=== PATIENT | male | born 1965 | race Caucasian/White ===

== ENCOUNTER 2019-01-08 09:05 | Outpatient (CLI) | payer OTHER ==
[2019-01-08 10:46] LABS: CREATININE 1.12 mg/dL (0.7-1.3)
[2019-01-08] MEDS ORDERED: OMNIPAQUE 350 MG/ML, 100ML BOTTLE ONE (15:00)
== END 2019-01-08 23:59 | disposition home or self-care (01) ==
LOC: RAD 09:05
PROVIDERS: ATTEND Internal Medicine
DX: R91.8 Other nonspecific abnormal finding of lung field (principal); D83.1 Common variable immunodeficiency with predominant immunoregulatory T-cell disorders; R16.1 Splenomegaly, not elsewhere classified
CPT/HCPCS: 36415; 74177; 82565; Q9967

== ENCOUNTER 2019-10-20 13:10 | Emergency (ER) | payer OTHER ==
[~2019-10-20] VITALS: Ht 175.3 cm; Wt 106.3 kg
[2019-10-20] MEDS ORDERED: SODIUM CHLORIDE FLUSH 10ML SYR IVF ONE (14:00)
[2019-10-20 14:21] LABS: INTERNATIONAL NORMALIZED RATIO 0.96 (0.93-1.1); PROTHROMBIN TIME 10.2 Seconds (9.6-11.5)
[2019-10-20 14:22] LABS: ALBUMIN 3.7 g/dL (3.4-5.0); ANION GAP 4 mmol/L (5-15); CALCIUM 9.1 mg/dL (8.5-10.1); CHLORIDE 106 mmol/L (98-107)
[2019-10-20 14:26] LABS: ALANINE AMINOTRANSFERASE 72 U/L (12-78); ALKALINE PHOSPHATASE 143 U/L (45-117); BILIRUBIN,TOTAL 0.4 mg/dL (0.2-1.0); CREATININE 0.97 mg/dL (0.7-1.3); TOTAL PROTEIN 7.1 g/dL (6.4-8.2)
[2019-10-20 14:57] LABS: MD YES; MEAN CORPUSCULAR HEMOGLOBIN 27.3 pg (27.5-34.5); MEAN CORPUSCULAR HGB CONC 33.4 g/dL (33.2-36.2); MEAN CORPUSCULAR VOLUME 81.6 fL (81-97); MEAN PLATELET VOLUME 10.2 fL (7.4-10.4); PLATELET COUNT 51 x10^3/uL (130-400); RED CELL DISTRIBUTION WIDTH 17.1 % (9.4-14.8)
[2019-10-20 15:06] LABS: EOS#(MANUAL) 0.02 x10^3/uL (0.0-0.4); EOS% (MANUAL) 1 % (1-7); LYMPH#(MANUAL) 0.48 x10^3/uL (1-3.4); LYMPHS% (MANUAL) 25 % (22-44); MONOS#(MANUAL) 0.36 x10^3/uL (0.3-2.7); MONOS% (MANUAL) 19 % (2-9); SEG#(MANUAL) 1.05 x10^3/uL (1.8-6.8); SEGS% (MANUAL) 55 % (42-75)
[2019-10-20 15:07] LABS: <PLATELET ESTIMATE> DECREASED; ANISOCYTOSIS 1+; POLYCHROMASIA 1+
[2019-10-20 15:08] LABS: LARGE PLATELETS 1+
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
[2019-10-20] MEDS ORDERED: MONT10TA11 PO (15:56)
[2019-10-20] MEDS ORDERED: ENAL20TA PO (15:56)
[2019-10-20] MEDS ORDERED: MESA800T2 PO ×2 (15:56)
[2019-10-20] MEDS ORDERED: IGG (15:56)
[2019-10-20] MEDS ORDERED: ATOR40TA78 PO (15:56)
[2019-10-20] MEDS ORDERED: CETI10TA26 PO (15:56)
[2019-10-20] MEDS ORDERED: LORA10TA75 PO (15:56)
[2019-10-20] MEDS ORDERED: CIME200T6 PO (15:56)
[2019-10-20] MEDS ORDERED: LANS30CA PO (15:56)
--- NOTE | 2019-10-20 16:00 | NUR ---
TO CT PER TARUN.
[2019-10-20] MEDS ORDERED: OMNIPAQUE 350 MG/ML, 100ML BOTTLE ONE (16:15)
--- NOTE | 2019-10-20 16:38 | NUR ---
PT REPORT TO BREAK RN. PT CARE TRANSFERRED.
[2019-10-20 17:34] VITALS: BP 118/66
== END 2019-10-20 17:36 | disposition home or self-care (01) ==
LOC: ED 17:30
DX: R16.1 Splenomegaly, not elsewhere classified (principal); R91.1 Solitary pulmonary nodule; R59.1 Generalized enlarged lymph nodes; R94.31 Abnormal electrocardiogram [ECG] [EKG]
CPT/HCPCS: 36415; 74177; 80053; 83690; 85025; 85610; 85730; 93005; 99285; Q9967

== ENCOUNTER 2019-12-10 10:12 | Outpatient (CLI) | payer OTHER ==
[~2019-12-10 10:12] MED LIST: ATOR40TA78 PO; CETI10TA26 PO; CIME200T6 PO; ENAL20TA PO; IGG; LANS30CA PO; LORA10TA75 PO; MESA800T2 PO; MONT10TA11 PO
[2019-12-10] MEDS ORDERED: OMNIPAQUE 350 MG/ML, 75ML BOTTLE ONE (12:26)
== END 2019-12-10 23:59 | disposition home or self-care (01) ==
LOC: CFH 10:12
PROVIDERS: ATTEND Internal Medicine
DX: D83.1 Common variable immunodeficiency with predominant immunoregulatory T-cell disorders (principal); R59.9 Enlarged lymph nodes, unspecified; R59.0 Localized enlarged lymph nodes; R91.8 Other nonspecific abnormal finding of lung field
CPT/HCPCS: 71260; Q9967